=== PATIENT | male | born 1980 | race Two or more races ===

== ENCOUNTER 2023-10-04 05:12 | Emergency (ER) | payer OTHER ==
[~2023-10-04] VITALS: Ht 175.3 cm; Wt 99.8 kg
[~2023-10-04 05:12] MED LIST: DOLOGEN CAPLET1 EACH PO; TUSNEL LIQUID178 ML PO
[2023-10-04] MEDS ORDERED: ACETAMINOPHEN 500 MG GEL..CAP PO STA (06:12)
[2023-10-04] MEDS ORDERED: GUAIFENESIN 200 MG/10 ML BLIST.PACK PO STA (06:13)
[2023-10-04 06:38] LABS: PH,URINE 5.5 (5.0-8.0); URINE APPEARANCE Clear; URINE BILIRRUBIN Negative (NEGATIVE); URINE BLOOD Negative; URINE COLOR Yellow; URINE GLUCOSE Negative (NEGATIVE); URINE LEUKOCYTE Negative; URINE NITRATE Negative; URINE PROTEIN Negative (NEGATIVE)
[2023-10-04 06:49] LABS: URINE BACTERIA 6.2 uL (0.0-1933); URINE RBC 2.7 uL (0.0-20.8)
[2023-10-04 06:51] LABS: URINE WBC 1.5 uL (0.0-23.2)
[2023-10-04 06:51] LABS: HEMATOCRIT 39.5 % (39.0-48.0); HEMOGLOBIN 14.1 g/dL (13-16.00); MEAN CELL VOLUME 85.1 fL (80.0-100.00); MEAN CORPUSCULAR HEMOGLOBIN 30.4 pg (27.00-32.0); MEAN CORPUSCULAR HGB CONC 35.7 g/dl (32.0-36.0); PLATELET COUNT 281 K/uL (150-450); RED BLOOD COUNT 4.64 M/uL (4.00-6.00); RED CELL DISTRIBUTION WIDTH 13.3 % (11.5-14.5)
== END 2023-10-04 08:49 | disposition home or self-care (01) ==
LOC: ER
PROVIDERS: General Practice
DX: B34.9 Viral infection, unspecified (principal); E11.9 Type 2 diabetes mellitus without complications; Z20.822 Contact with and (suspected) exposure to COVID-19